=== PATIENT | female | born 2000 | race Two or more races ===

== ENCOUNTER 2021-04-11 22:55 | Emergency (ER) | payer SELFPAY ==
[~2021-04-11] VITALS: Ht 157.5 cm; Wt 72.1 kg
[2021-04-12 01:06] VITALS: BP 112/65
[2021-04-12] MEDS ORDERED: KETOROLAC TROMETH 60MG/2ML VIAL IM ONE (01:15)
[2021-04-12] MEDS ORDERED: METHOCARBAMOL 500 MG TAB PO ONE (01:15)
== END 2021-04-12 02:53 | disposition home or self-care (01) ==
LOC: ER 22:58
DX: S13.4XXA Sprain of ligaments of cervical spine, initial encounter (principal); M25.511 Pain in right shoulder; M25.512 Pain in left shoulder; M54.9 Dorsalgia, unspecified; V43.52XA Car driver injured in collision with other type car in traffic accident, initial encounter; Y93.89 Activity, other specified; Y92.410 Unspecified street and highway as the place of occurrence of the external cause; Y99.8 Other external cause status
CPT/HCPCS: 72040; 72070; 96372; 99284; J1885

== ENCOUNTER 2022-09-08 18:50 | Emergency (ER) | payer SELFPAY ==
[~2022-09-08] VITALS: Ht 154.9 cm; Wt 72.0 kg
[2022-09-08 19:38] VITALS: BP 121/69
[2022-09-08] MEDS ORDERED: ONDANSETRON ODT 4 MG TAB PO ONE (19:45)
[2022-09-08 20:18] LABS: Basophils # (auto) 0.1 10 ^3/uL (0-0.2); Basophils % (auto) 2.5 % (0.0-2.0); Eosinophils # (auto) 0.1 10 ^3/uL (0-0.8); Eosinophils % (auto) 1.6 % (0.0-7.0); Hematocrit 41.6 % (36.0-46.0); Hemoglobin 13.9 g/dL (12.2-16.2); Lymphocytes # (auto) 0.8 10 ^3/uL (0.4-5.4); Lymphocytes % (auto) 14.6 % (10.0-50.0); Mean Corpuscular Hemoglobin 29.1 pg (28.0-32.0); Mean Corpuscular Hgb Conc. 33.5 g/dL (32.0-36.0); Mean Corpuscular Volume 86.9 fL (80.0-100.0); Monocytes # (auto) 0.2 10 ^3/uL (0-1.3); Monocytes % (auto) 4.6 % (0.0-12.0); Neutrophils # (auto) 4.1 10 ^3/uL (1.6-8.6); Neutrophils % (auto) 76.7 % (37.0-80.0); Nucleated Red Blood Cells % 0.1 %; Red Blood Cells 4.78 10^6/uL (4.0-5.20); Red Cell Distribution Width 13.7 % (11.8-14.3); White Blood Cell 5.4 10^3/uL (4.4-10.8)
[2022-09-08 20:43] LABS: Albumin 3.5 g/dL (3.4-5.0); BUN/Creatinine Ratio 11.3
[2022-09-08 20:46] LABS: Bilirubin, Total 0.3 mg/dL (0.2-1.0); Total Protein 7.2 g/dL (6.4-8.2)
== END 2022-09-08 23:08 | disposition left against medical advice (07) ==
LOC: ER 18:50
DX: T78.40XA Allergy, unspecified, initial encounter (principal); X58.XXXA Exposure to other specified factors, initial encounter
CPT/HCPCS: 36415; 80053; 83690; 85025; 99283; Q0162